=== PATIENT | male | born 1950 | race Caucasian/White ===

== ENCOUNTER 2023-09-28 17:39 | Inpatient (IN) | payer MEDICARE, SELFPAY ==
[2023-09-28] VITALS (12 sets, daily range): BP systolic 101–140; BP diastolic 50–67; PULSE 58–76; RESP 14–19; TEMP 36.4; O2SAT 94–100
--- NOTE | ~2023-09-28 | CT_ITS ---
Non-contrast Head CT History: Altered mental status Technique: Axial non-contrast imaging of the brain was performed. Dose reduction technique was used on this scan by utilizing automated exposure control and iterative reconstruction technique. The dose -length product (DLP) was 681.00 mGy-cm. Findings: There is no evidence of intracranial hemorrhage, mass lesion, or acute infarct. Brain par enchyma appears normal. The ventricles and subarachnoid spaces are normal in size. The calvarium ap pears normal. The visualized paranasal sinuses and mastoid air cells are clear. Impression: No significant abnormality seen. Reviewed, dictated and finalized at location . Impression: No significant abnormality seen.
--- NOTE | ~2023-09-28 | XR_ITS ---
EXAMINATION: XR chest 1V portable DATE: 09/28/2023 20:18 INDICATION: Weakness. TECHNIQUE: A single frontal view of the chest was obtained. COMPARISON: None. FINDINGS: There is mild atelectasis at left lung base. No pleural effusion or pneumothorax. The heart size is normal. There is an electronic implant overlying left chest. IMPRESSION: 1. Mild atelectasis at left lung base. Reviewed, dictated and finalized at location E.
--- NOTE | 2023-09-28 18:34 | ECG_ITS ---
SEE SCANNED COPY FOR CONFIRMED REPORT MTDD
--- NOTE | 2023-09-28 18:35 | ED.RECABL ---
HPI - Recheck/Abnormal Lab/Rx General Chief Complaint: Recheck/Abnormal Lab/Rx <Isma Watson APRN - Last Filed: 10/18/23 08:53> Stated Complaint: abnormal labs <Isma Watson APRN - Last Filed: 10/18/23 08:53> Time Seen by Provider: 09/28/23 19:04 <Isma Watson APRN - Last Filed: 10/18/23 08:53> Focused HPI: GENERAL: Well-appearing, well-nourished, and in no acute distress. HEAD: Normocephalic, atraumatic. CHEST: Clear to auscultation. No respiratory distress. HEART: Regular rate and rhythm. NEURO: Alert and oriented x3. Patient screened in triage and initial orders placed. Additional care and disposition to be based upon diagnostic testing and treatment. 73-year-old male presents to the emergency room via EMS from a nursing rehab for evaluation of hypercapnic patient had routine labs drawn today, potassium level 6.7. Patient denies any chest pain, shortness of breath palpitations, worsening muscle weakness, nausea vomiting, worsening lethargy and fatigue. <Isma Watson APRN - Last Filed: 10/18/23 08:53> History of Present Illness HPI narrative: Cross cover note from nursing rehab shows patient had acute mental status change with low blood pressures in the 80s systolic. Patient awake alert here. Recent admission to rehab due to trauma and subsequent stroke. No complaints at this time. <Terry Chavira MD - Last Filed: 09/28/23 23:51> Related Data Home Medications: Home Medications Medication Instructions Recorded Confirmed acetaminophen 500 mg capsule 975 mg PO TID 09/22/23 09/29/23 apixaban 2.5 mg tablet 2.5 mg PO BID 09/22/23 09/29/23 aspirin 325 mg tablet 325 mg PO DAILY 09/22/23 09/29/23 atorvastatin 80 mg tablet 80 mg PO HS 09/22/23 09/29/23 oxycodone 5 mg tablet 5 mg PO Q4H PRN Pain (Scale Score 09/22/23 09/29/23 7-10) polyethylene glycol 3350 17 17 g PO DAILY 04/12/24 04/19/24 gram/dose oral powder sennosides 8.6 mg tablet (senna) 8.6 mg PO BID 09/22/23 09/29/23 tamsulosin 0.4 mg capsule 0.4 mg PO QHS 09/22/23 09/29/23 mirtazapine 15 mg tablet 30 mg PO HS 09/29/23 09/29/23 ondansetron 4 mg disintegrating 4 mg PO Q8H PRN Nausea And Vomiting 09/29/23 09/29/23 tablet sertraline 50 mg tablet 25 mg PO DAILY 09/29/23 09/29/23 trazodone 50 mg tablet 25 mg PO HS 09/29/23 09/29/23 <Isma Watson APRN - Last Filed: 10/18/23 08:53> Allergies/Adverse Reactions: Allergies Allergy/AdvReac Type Severity Reaction Status Date / Time Iodinated Contrast Media Allergy Rash Verified 09/22/23 22:31 <Isma Watson APRN - Last Filed: 10/18/23 08:53> Review of Systems Review of Systems: All systems reviewed & are unremarkable except as noted in HPI and below <Terry Chavira MD - Last Filed: 09/28/23 23:51> Constitutional: Constitutional: Reports no additional constitutional complaints <Terry Chavira MD - Last Filed: 09/28/23 23:51> ENT: Reports system reviewed and no additional complaints, except as documented <Terry Chavira MD - Last Filed: 09/28/23 23:51> Cardiovascular: Cardiovascular: Reports no additional cardiovascular complaints <Terry Chavira MD - Last Filed: 09/28/23 23:51> Respiratory: Respiratory: Reports no additional respiratory complaints <Terry Chavira MD - Last Filed: 09/28/23 23:51> Gastrointestinal: Gastrointestinal: Reports no additional gastrointestinal complaints <Terry Chavira MD - Last Filed: 09/28/23 23:51> Neurologic: Reports system reviewed and no additional complaints, except as documented <Terry Chavira MD - Last Filed: 09/28/23 23:51> PMFSH Past Medical History Medical History: Medical History (Updated 10/05/23 @ 08:32 by Christen Rincker, DEVELOPMENTAL THERAPIST) Basal ganglia stroke Closed fracture of left proximal radius Dysphagia as late effect of stroke Gait abnormality Hyperlipidemia Hypertension Kidney stones <Isma Watson, DEVELOPMENTAL THERAPIST - Last Filed: 10/18/23 08:53> Surgical Hist
[2023-09-28 19:15] LABS: Alanine Aminotransferase 33 U/L (6-50); Albumin Level 4.2 g/dL (3.5-5.1); Alkaline Phosphatase 165 U/L (38-126); Anion Gap 7 mmol/L (4-12); Aspartate Amino Transferase 33 U/L (17-59); Bilirubin,Total 0.9 mg/dL (0.2-1.3); Blood Urea Nitrogen 46 mg/dL (9-20); Calcium 8.7 mg/dL (8.4-10.2); Carbon Dioxide 24 mmol/L (22-30); Chloride 102 mmol/L (98-107); Estimated CRCL calculation 18 ml/min; Estimated Glomerular Filt Rate 35; Glucose 117 mg/dL (65-110); Magnesium 2.8 mg/dL (1.6-2.3); Potassium 5.4 mmol/L (3.4-5.0); Sodium 133 mmol/L (137-145)
[2023-09-28] MEDS: LACTATED RINGERS 1,000 ML 250 ML IV CONT (19:25)
[2023-09-28 19:26] LABS: Troponin I < 0.012 ng/mL (0.000-0.034)
[2023-09-28] MEDS: SODIUM CHLORIDE 0.9% IV 1,000 ML 999 ML IV CONT (19:28)
[2023-09-28] MEDS: HYDROcodone/acetaminophen (*CRX) 5-325 MG TABLET 1 TAB PO (21:04)
[2023-09-28 21:06] LABS: Hematocrit 34.6 % (42.0-52.0); Hemoglobin 11.1 g/dL (14.0-18.0); Mean Corpuscular HGB Conc 32.1 g/dl (32-36); Mean Corpuscular Hemoglobin 28.7 pg (26-34); Mean Corpuscular Volume 89.4 fl (80-100); Mean Platelet Volume 9.8 fl (7.4-10.4); Platelet Count Result 402 k/mm3 (150-375); Red Blood Count 3.87 M/mm3 (4.6-6.20); Red Cell Distribution Width 13.3 % (11.5-14.5); White Blood Count 11.4 K/mm3 (4.5-10.0)
[2023-09-28 21:25] LABS: Band Neutrophils Percent 1 % (0-6); Eosinophils Absolute Manual 0.22 K/mm3 (0.02-0.50); Eosinophils Percent Manual 2 % (0-4); Lymphocytes Absolute Manual 1.48 K/mm3 (1.1-4.5); Monocytes Absolute Manual 0.79 K/mm3 (0.1-0.90); Monocytes Percent Manual 7 % (3-9); Myelocytes Percent 1 %; Neutrophils Absolute Manual 8.77 K/mm3 (1.3-6.7); Neutrophils Percent Manual 76 % (46-73); Total Cells Counted 100
[2023-09-28 21:26] LABS: Anisocytosis 1+; Hypochromasia 1+; Platelet Estimate Increased (Adequate); Poikilocytosis 1+; Schistocytes None Seen
[2023-09-28 21:37] LABS: Influenza A QL RT-PCR Negative (Negative); Influenza B QL RT-PCR Negative (Negative); RSV RNA, RT-PCR Negative (Negative); SARS-CoV-2 RNA PCR Negative (Negative)
[2023-09-28 22:48] LABS: Appearance Urine Clear (Clear); Bacteria Urine None Seen /hpf; Bilirubin Urine Negative (Negative); Blood Urine Negative (Negative); Color Urine Yellow (Yellow); Glucose Urine UA Negative (Negative); Ketones Urine Negative (Negative); Leukocyte Esterase Ur Negative LEU/UL (Negative); Need Manual Microscopic Reviewed; Nitrate Urine Negative (Negative); Protein Urine Trace mg/dL (Negative); RBC Urine 0-2 /hpf (0-2); Specific Grav Ur 1.016 (1.001-1.035); Squamous Epithelial Cell Urine None Seen /hpf (Few); WBC Urine 0-5 /hpf (0-3); pH Urine 5.5 (5.0-9.0)
[2023-09-28 22:49] LABS: Add Urine Microscopic? YES
--- NOTE | 2023-09-28 23:01 | PC.NURSE ---
this rn assumed care of patient. this rn took patient report from JAYSHREE Chakraborty.
[2023-09-28] MEDS: SODIUM CHLORIDE 0.9% IV 1,000 ML 125 ML IV CONT (23:58)
[2023-09-29] VITALS (10 sets, daily range): BP systolic 140–169; BP diastolic 58–79; PULSE 60–81; RESP 14–21; TEMP 36.1–36.7; O2SAT 94–100; BMI 30.2
--- NOTE | 2023-09-29 00:42 | ADMGEN ---
This patient, Michael Iqbal, was admitted to -. Patient/family oriented to hospital policies and general routines including ID bracelet, bed and alarms, visiting hours, pain management, procedures, bathroom and other care routines, personal items, smoking policy, room service/diet, and visiting hours. Information on how to activate the Rapid Response Team has been discussed. Patient/Family are encouraged to report perceived risks to care and to ask questions if they do not understand what they are told or what they should do.
[2023-09-29] MEDS: SODIUM ZIRCONIUM CYCLOSILICATE 10 GM POWD.PACK PO (05:40)
[2023-09-29 06:12] LABS: Basophils Absolute Auto 0.1 K/mm3 (0.0-0.1); Basophils Percent Auto 0.5 % (0.2-1.2); Eosinophils Absolute Auto 0.5 K/mm3 (0-0.3); Eosinophils Percent Auto 4.4 % (0-4.4); Hematocrit 35.4 % (42.0-52.0); Hemoglobin 11.1 g/dL (14.0-18.0); Immature Granulocyte Absolute 0.64 K/mm3 (0.00-0.031); Immature Granulocyte Percent A 5.5 % (0-0.5); Lymphocytes Percent Auto 8.6 % (18.3-44.2); Mean Corpuscular HGB Conc 31.4 g/dl (32-36); Mean Corpuscular Hemoglobin 28.6 pg (26-34); Mean Corpuscular Volume 91.2 fl (80-100); Mean Platelet Volume 10.2 fl (7.4-10.4); Monocytes Percent Auto 8.1 % (2.6-8.5); Neutrophils Absolute Auto 8.5 K/mm3 (1.3-6.7); Neutrophils Percent Auto 72.9 % (45.5-73.1); Platelet Count Result 405 k/mm3 (150-375); Red Blood Count 3.88 M/mm3 (4.6-6.20); Red Cell Distribution Width 13.3 % (11.5-14.5); White Blood Count 11.7 K/mm3 (4.5-10.0)
[2023-09-29 06:17] LABS: Ammonia < 9 umol/L (9-30)
[2023-09-29 06:36] LABS: Anion Gap 8 mmol/L (4-12); Blood Urea Nitrogen 44 mg/dL (9-20); Calcium 8.7 mg/dL (8.4-10.2); Carbon Dioxide 21 mmol/L (22-30); Chloride 107 mmol/L (98-107); Estimated CRCL calculation 42 ml/min; Estimated Glomerular Filt Rate 46; Glucose 93 mg/dL (65-110); Magnesium 2.9 mg/dL (1.6-2.3); Potassium 4.5 mmol/L (3.4-5.0); Sodium 136 mmol/L (137-145)
[2023-09-29 06:50] LABS: Procalcitonin 0.1 ng/mL
--- NOTE | 2023-09-29 07:09 | PM.IMHP ---
H&P: HPI History of Present Illness Date/Time: 09/29/23 07:09 Chief Complaint: low blood pressure Narrative: This is a 73 year old male with a PMH of HTN, HLD, and depression who recently suffered a ground level fall on 09/17/23 resulting in left hip fracture and left distal radius fracture. He reports he was walking in a parking lot and started to feel like he was passing out. He was [facility]. He underwent left hip shantell arthroplasty on 09/17. His left distal radius fracture was minimally displaced and therefore a volar resting splint was placed. During his hospitalization he developed slurred speech on 09/18 as well as left sided weakness and facial droop with NIH of 10. Neurology was consulted but he was not a candidate for acute interventions. MRI confirmed R basal ganglion acute v subacute infarct. Stroke is suspected to be related to small vessel disease and he was started on aspirin and plavix. He discharged from [place] to [facility] on 09/22/23 for acute inpatient rehab. On 09/27 at [facility] the patient experienced a low blood pressure with reported systolic in the 80's. Stat labs were drawn and he was found to have hyperkalemia and MAYTE. He was recently started on lisinopril and hydrochlorothiazide during his hospitalization at [place]. His lisinopril was decreased yesterday due to concerns for low blood pressure and he received a 1 L NS bolus. He was sent to [facility] ED for further evaluation. In the ED labs were significant for white count of 15.3, hemoglobin 12.1, platelets 524, Na 135, K+ 6.7, BUN 44, and Cr 1.90. Respiratory panel was negative as well as U/A. A head CT was preformed and showed no significant abnormality. Chest XR from 09/27 shows mild left lung base atelectasis. EKG shows NSR with a rate of 68 bpm. On exam he is resting in bed in no acute distress. His friend, Abena is at the bedside. She states she came to see him because he had called her seven times since 0700 this morning. The patient is able to answer my questions appropriately but he does have some impulsivity. He denies pain at this time. He denies dizziness, headache, shortness of breath, chest pain, nausea, vomiting or abdominal pain. He reports his last bowel movement was yesterday denying constipation or diarrhea. He voids per urinal without difficulty. He had a Marsh catheter at one point at [facility] but has been voiding well since removal. He does report left sided weakness since the stroke as well as dysphagia and cough with drinking. 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 His left lower extremity is able to move against gravity with some drift. He reports that he has not had the best intake of food or fluids due to lack of appetite. Review of Systems Review of Systems: All systems reviewed & are unremarkable except as noted in HPI and below [facility] Past Medical History Medical History (Updated 09/29/23 @ 10:29 by Ely Ny APRN) Basal ganglia stroke Closed fracture of left proximal radius Dysphagia as late effect of stroke Gait abnormality Hyperlipidemia Hypertension Kidney stones Surgical History Surgical History (Updated 09/29/23 @ 10:29 by Ely Ny APRN) H/O lithotripsy History of left hip hemiarthroplasty Family History Family History Sibling Diabetes mellitus Acute myocardial infarction Rheumatic aortic valve disease Father CHF (congestive heart failure) Social History Social History (Updated 09/29/23 @ 10:31 by Ely Ny APRN) Social History: retired from being a industrial truck operator, , and has a step-daughter Bri Kaye who lives in [facility]. Smoking status: Never smoker Alcohol intake: never Drinks per week: 1 Substance use: never Do You Feel Safe in your Home?: Yes Lack of Transportation: No Lack of Food: Never True Current Housing: I Have Housing Concerned About Future Housing: No Difficu
[2023-09-29 07:30] LABS: Hypochromasia 1+; Platelet Estimate Adequate (Adequate); Schistocytes None Seen
[2023-09-29] MEDS: APIXABAN 2.5 MG TABLET PO ×2 (09:03→16:53)
[2023-09-29] MEDS: ASPIRIN 325 MG TABLET PO (09:03)
[2023-09-29] MEDS: polyethylene glycoL 3350 17 GM POWD.PACK PO (09:03)
[2023-09-29] MEDS: SERTRALINE HCL 25 MG TABLET PO (09:03)
[2023-09-29] MEDS: SENNOSIDES 8.6 MG TABLET PO ×2 (09:03→16:53)
[2023-09-29] MEDS: HYDROcodone/acetaminophen (*CRX) 5-325 MG TABLET 1 TAB PO ×3 (09:22→20:57)
--- NOTE | 2023-09-29 15:50 | PCSTNOTE ---
Please refer to the Bedside Swallow Evaluation in the EMR. Please note, silent aspiration cannot be ruled out at bedside.
--- NOTE | 2023-09-29 16:01 | PCSTNOTE ---
Please refer to the Bedside Swallow Evaluation in the EMR. Please note, silent aspiration cannot be ruled out at bedside.
[2023-09-29] MEDS: SODIUM CHLORIDE 0.9% IV 1,000 ML 75 ML IV CONT (20:11)
[2023-09-29] MEDS: TAMSULOSIN HCL 0.4 MG CAPSULE PO (20:12)
[2023-09-29] MEDS: MIRTAZAPINE 15 MG TABLET 30 MG PO (20:12)
[2023-09-29] MEDS: ATORVASTATIN 40 MG TABLET 80 MG PO (20:12)
[2023-09-29] MEDS: traZODone HCL 25 MG TABLET PO (20:12)
[2023-09-30] VITALS (9 sets, daily range): BP systolic 140–161; BP diastolic 64–75; PULSE 65–77; RESP 18; TEMP 36.1–36.9; O2SAT 96–98
[2023-09-30 05:02] LABS: Hematocrit 32.9 % (42.0-52.0); Hemoglobin 10.3 g/dL (14.0-18.0); Mean Corpuscular HGB Conc 31.3 g/dl (32-36); Mean Corpuscular Hemoglobin 28.1 pg (26-34); Mean Corpuscular Volume 89.6 fl (80-100); Platelet Count Result 421 k/mm3 (150-375); Red Blood Count 3.67 M/mm3 (4.6-6.20); Red Cell Distribution Width 13.1 % (11.5-14.5); White Blood Count 11.5 K/mm3 (4.5-10.0)
[2023-09-30 05:13] LABS: Alanine Aminotransferase 23 U/L (6-50); Albumin Level 3.8 g/dL (3.5-5.1); Alkaline Phosphatase 139 U/L (38-126); Anion Gap 8 mmol/L (4-12); Aspartate Amino Transferase 25 U/L (17-59); Bilirubin,Total 0.8 mg/dL (0.2-1.3); Blood Urea Nitrogen 24 mg/dL (9-20); Calcium 9.1 mg/dL (8.4-10.2); Carbon Dioxide 22 mmol/L (22-30); Chloride 108 mmol/L (98-107); Estimated CRCL calculation 69 ml/min; Estimated Glomerular Filt Rate > 60; Glucose 106 mg/dL (65-110); Magnesium 2.5 mg/dL (1.6-2.3); Sodium 138 mmol/L (137-145)
--- NOTE | 2023-09-30 08:36 | P.PNIM_ITS ---
Progress Note: A&P Assessment and Plan (1) MAYTE (acute kidney injury): Code(s): N17.9 - Acute kidney failure, unspecified Status: Acute Assessment and Plan: Likely pre-renal 2/2 to dehydration from hydrochlorothiazide diuretic and low bp * Blood pressures were low at [facility], reported systolic in the 80's * BP has recovered today now at 140/62 * check orthostatic vital signs * Continue IVF but rate decreased to 75 ml per hour * Strict I&O * Holding lisinopril and Hctz at this time * U/A normal * Cr this morning is downtrending to 1.5 09/29: * Cr has returned to normal at 0.9 * Stop IVF * BP 140-150/60-70, HR 70's * Do not plan on restarting Hctz as he likely is not taking in enough PO intake given stroke to warrant diuresis for bp control. * Switch to amlodipine 5 mg daily given persistent elevated K+ (2) Acute hyperkalemia: Code(s): E87.5 - Hyperkalemia Status: Acute Assessment and Plan: K+ 6.7 on admission * On telemetry, NSR rate 68 * Received Lokelma 10 mg once * K this morning is 4.5 09/29: * K+ 5.0 * stopping lisinopril (3) Closed fracture of left proximal radius: Code(s): S52.102A - Unspecified fracture of upper end of left radius, initial encounter for closed fracture Status: Acute Assessment and Plan: NWB to left wrist with volar splint (4) History of left hip hemiarthroplasty: Code(s): Z96.642 - Presence of left artificial hip joint Status: Acute Assessment and Plan: PT/OT consulted for continued therapy Eliquis 2.5 mg PO BID for DVT prophylaxis until 10/14 (5) Hypertension: Code(s): I10 - Essential (primary) hypertension Status: Acute Assessment and Plan: Was recently started on lisinopril and hctz at [place] * agents are currently being held due to presentation with low bp, MAYTE, and hyperkalemia * monitor BP daily 09/29: * blood pressures are running SBP 140-160's * Will start amlodipine 5 mg (6) Basal ganglia stroke: Code(s): I63.81 - Other cerebral infarction due to occlusion or stenosis of small artery Status: Acute Assessment and Plan: On statin, ASA 325 mg Left sided weakness and droop with dysphagia started on sertraline and mirtazapine for depression PT/OT/ST consulted (7) 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 Received a call from care coordination that the patient had made statements at [facility] that if he had to go to a SNF he would kill himself. [place] screen completed upon admission here and he was determined to be a low risk. I will speak to patient about these statments today. Plan Blood pressure monitoring IVF for MAYTE [facility] will not receive the patient back. Will need SNF placement. Subjective Date/time seen: 09/30/23 08:36 Interval history: 09/29-Doing well today. He was moved to a room closer to the nurses station because of his impulsivity. I discussed with him that he will need to go to a SNF at discharge because he cannot safely go home yet but according to care coordination he cannot go back to [facility]. I also discussed with him statements that were made by him at [facility] concerning wanting to end his life. He states he does not remember that. He says he does not currently have any thoughts
--- NOTE | 2023-09-30 08:36 | PM.IMPN ---
Progress Note: A&P Assessment and Plan (1) MAYTE (acute kidney injury): Code(s): N17.9 - Acute kidney failure, unspecified Status: Acute Assessment and Plan: Likely pre-renal 2/2 to dehydration from hydrochlorothiazide diuretic and low bp Blood pressures were low at [facility], reported systolic in the 80's BP has recovered today now at 140/62 check orthostatic vital signs Continue IVF but rate decreased to 75 ml per hour Strict I&O Holding lisinopril and Hctz at this time U/A normal Cr this morning is downtrending to 1.5 09/29: Cr has returned to normal at 0.9 Stop IVF BP 140-150/60-70, HR 70's Do not plan on restarting Hctz as he likely is not taking in enough PO intake given stroke to warrant diuresis for bp control. Switch to amlodipine 5 mg daily given persistent elevated K+ (2) Acute hyperkalemia: Code(s): E87.5 - Hyperkalemia Status: Acute Assessment and Plan: K+ 6.7 on admission On telemetry, NSR rate 68 Received Lokelma 10 mg once K this morning is 4.5 09/29: K+ 5.0 stopping lisinopril (3) Closed fracture of left proximal radius: Code(s): S52.102A - Unspecified fracture of upper end of left radius, initial encounter for closed fracture Status: Acute Assessment and Plan: NWB to left wrist with volar splint (4) History of left hip hemiarthroplasty: Code(s): Z96.642 - Presence of left artificial hip joint Status: Acute Assessment and Plan: PT/OT consulted for continued therapy Eliquis 2.5 mg PO BID for DVT prophylaxis until 10/14 (5) Hypertension: Code(s): I10 - Essential (primary) hypertension Status: Acute Assessment and Plan: Was recently started on lisinopril and hctz at [place] agents are currently being held due to presentation with low bp, MAYTE, and hyperkalemia monitor BP daily 09/29: blood pressures are running SBP 140-160's Will start amlodipine 5 mg (6) Basal ganglia stroke: Code(s): I63.81 - Other cerebral infarction due to occlusion or stenosis of small artery Status: Acute Assessment and Plan: On statin, ASA 325 mg Left sided weakness and droop with dysphagia started on sertraline and mirtazapine for depression PT/OT/ST consulted (7) 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 Received a call from care coordination that the patient had made statements at [facility] that if he had to go to a SNF he would kill himself. [place] screen completed upon admission here and he was determined to be a low risk. I will speak to patient about these statments today. Plan Blood pressure monitoring IVF for MAYTE [facility] will not receive the patient back. Will need SNF placement. Subjective Date/time seen: 09/30/23 08:36 Interval history: 09/29-Doing well today. He was moved to a room closer to the nurses station because of his impulsivity. I discussed with him that he will need to go to a SNF at discharge because he cannot safely go home yet but according to care coordination he cannot go back to [facility]. I also discussed with him statements that were made by him at [facility] concerning wanting to end his life. He states he does not remember that. He says he does not currently have any thoughts of wanting to end his life or harm himself. He denies homicidal ideation. He states that he sometimes gets down and sad since his stroke. He becomes tearful when talking about his cat. Review of Systems Review of Systems: All systems reviewed & are unremarkable except as noted in HPI and below Exam Narrative: General: well appearing, appears stated age, impulsive HEENT: normocephalic, atraumatic. Mucous
[2023-09-30] MEDS: SENNOSIDES 8.6 MG TABLET PO ×2 (09:21→17:52)
[2023-09-30] MEDS: APIXABAN 2.5 MG TABLET PO ×2 (09:21→17:52)
[2023-09-30] MEDS: SERTRALINE HCL 25 MG TABLET PO (09:21)
[2023-09-30] MEDS: polyethylene glycoL 3350 17 GM POWD.PACK PO (09:21)
[2023-09-30] MEDS: ASPIRIN 325 MG TABLET PO (09:21)
[2023-09-30] MEDS: MORPHINE SULFATE (*CRX) 2 MG/ML INJ IV PUSH (09:23)
[2023-09-30] MEDS: HYDROcodone/acetaminophen (*CRX) 5-325 MG TABLET 1 TAB PO (17:51)
[2023-09-30] MEDS: traZODone HCL 25 MG TABLET PO (20:10)
[2023-09-30] MEDS: ATORVASTATIN 40 MG TABLET 80 MG PO (20:10)
[2023-09-30] MEDS: TAMSULOSIN HCL 0.4 MG CAPSULE PO (20:11)
[2023-09-30] MEDS: MIRTAZAPINE 15 MG TABLET 30 MG PO (20:11)
[2023-10-01] VITALS (9 sets, daily range): BP systolic 125–149; BP diastolic 61–66; PULSE 62–74; RESP 15–18; TEMP 36.4–36.6; O2SAT 98–99
[2023-10-01] MEDS: HYDROcodone/acetaminophen (*CRX) 5-325 MG TABLET 1 TAB PO ×3 (01:58→17:15)
[2023-10-01] MEDS: polyethylene glycoL 3350 17 GM POWD.PACK PO (08:21)
[2023-10-01] MEDS: SERTRALINE HCL 25 MG TABLET PO (08:21)
[2023-10-01] MEDS: SENNOSIDES 8.6 MG TABLET PO ×2 (08:21→17:15)
[2023-10-01] MEDS: APIXABAN 2.5 MG TABLET PO ×2 (08:21→17:15)
[2023-10-01] MEDS: ASPIRIN 325 MG TABLET PO (08:21)
--- NOTE | 2023-10-01 09:25 | P.PNIM_ITS ---
Progress Note: A&P Assessment and Plan (1) MAYTE (acute kidney injury): Code(s): N17.9 - Acute kidney failure, unspecified Status: Acute Assessment and Plan: Likely pre-renal 2/2 to dehydration from hydrochlorothiazide diuretic and low bp * Blood pressures were low at [facility], reported systolic in the 80's * BP has recovered today now at 140/62 * check orthostatic vital signs * Continue IVF but rate decreased to 75 ml per hour * Strict I&O * Holding lisinopril and Hctz at this time * U/A normal * Cr this morning is downtrending to 1.5 09/29: * Cr has returned to normal at 0.9 * Stop IVF * BP 140-150/60-70, HR 70's * Do not plan on restarting Hctz as he likely is not taking in enough PO intake given stroke to warrant diuresis for bp control. * Switch to amlodipine 5 mg daily given persistent elevated K+ 09/30: * lab holiday (2) Acute hyperkalemia: Code(s): E87.5 - Hyperkalemia Status: Acute Assessment and Plan: K+ 6.7 on admission * On telemetry, NSR rate 68 * Received Lokelma 10 mg once * K this morning is 4.5 09/29: * K+ 5.0 * stopping lisinopril 09/30: * lab holiday (3) Closed fracture of left proximal radius: Code(s): S52.102A - Unspecified fracture of upper end of left radius, initial encounter for closed fracture Status: Acute Assessment and Plan: NWB to left wrist with volar splint (4) History of left hip hemiarthroplasty: Code(s): Z96.642 - Presence of left artificial hip joint Status: Acute Assessment and Plan: PT/OT consulted for continued therapy Eliquis 2.5 mg PO BID for DVT prophylaxis until 10/14 (5) Hypertension: Code(s): I10 - Essential (primary) hypertension Status: Acute Assessment and Plan: Was recently started on lisinopril and hctz at [place] * agents are currently being held due to presentation with low bp, MAYTE, and hyperkalemia * monitor BP daily 09/29: * blood pressures are running SBP 140-160's * Will start amlodipine 5 mg 09/30: * 149/66 mmhg (6) Basal ganglia stroke: Code(s): I63.81 - Other cerebral infarction due to occlusion or stenosis of small artery Status: Acute Assessment and Plan: On statin, ASA 325 mg Left sided weakness and droop with dysphagia started on sertraline and mirtazapine for depression PT/OT/ST consulted (7) 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 Received a call from care coordination that the patient had made statements at [facility] that if he had to go to a SNF he would kill himself. [place] screen completed upon admission here and he was determined to be a low risk. I will speak to patient about these statements today. 09/30: * Not suicidal or homicidal * Depressed Plan Blood pressure monitoring [facility] will not receive the patient back. Will need SNF placement. Subjective Date/time seen: 10/01/23 09:25 Interval history: 09/29-Doing well today. He was moved to a room closer to the nurses station because of his impulsivity. I discussed with him that he will need to go to a SNF at discharge because he cannot safely go home yet but according to care coordination he cannot go back to [facility]. I also discussed wit
--- NOTE | 2023-10-01 09:25 | PM.IMPN ---
Progress Note: A&P Assessment and Plan (1) MAYTE (acute kidney injury): Code(s): N17.9 - Acute kidney failure, unspecified Status: Acute Assessment and Plan: Likely pre-renal 2/2 to dehydration from hydrochlorothiazide diuretic and low bp Blood pressures were low at [facility], reported systolic in the 80's BP has recovered today now at 140/62 check orthostatic vital signs Continue IVF but rate decreased to 75 ml per hour Strict I&O Holding lisinopril and Hctz at this time U/A normal Cr this morning is downtrending to 1.5 09/29: Cr has returned to normal at 0.9 Stop IVF BP 140-150/60-70, HR 70's Do not plan on restarting Hctz as he likely is not taking in enough PO intake given stroke to warrant diuresis for bp control. Switch to amlodipine 5 mg daily given persistent elevated K+ 09/30: lab holiday (2) Acute hyperkalemia: Code(s): E87.5 - Hyperkalemia Status: Acute Assessment and Plan: K+ 6.7 on admission On telemetry, NSR rate 68 Received Lokelma 10 mg once K this morning is 4.5 09/29: K+ 5.0 stopping lisinopril 09/30: lab holiday (3) Closed fracture of left proximal radius: Code(s): S52.102A - Unspecified fracture of upper end of left radius, initial encounter for closed fracture Status: Acute Assessment and Plan: NWB to left wrist with volar splint (4) History of left hip hemiarthroplasty: Code(s): Z96.642 - Presence of left artificial hip joint Status: Acute Assessment and Plan: PT/OT consulted for continued therapy Eliquis 2.5 mg PO BID for DVT prophylaxis until 10/14 (5) Hypertension: Code(s): I10 - Essential (primary) hypertension Status: Acute Assessment and Plan: Was recently started on lisinopril and hctz at [place] agents are currently being held due to presentation with low bp, MAYTE, and hyperkalemia monitor BP daily 09/29: blood pressures are running SBP 140-160's Will start amlodipine 5 mg 09/30: 149/66 mmhg (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 Received a call from care coordination that the patient had made statements at [facility] that if he had to go to a SNF he would kill himself. [place] screen completed upon admission here and he was determined to be a low risk. I will speak to patient about these statements today. 09/30: Not suicidal or homicidal Depressed Plan Blood pressure monitoring [facility] will not receive the patient back. Will need SNF placement. Subjective Date/time seen: 10/01/23 09:25 Interval history: 09/29-Doing well today. He was moved to a room closer to the nurses station because of his impulsivity. I discussed with him that he will need to go to a SNF at discharge because he cannot safely go home yet but according to care coordination he cannot go back to [facility]. I also discussed with him statements that were made by him at [facility] concerning wanting to end his life. He states he does not remember that. He says he does not currently have any thoughts of wanting to end his life or harm himself. He denies homicidal ideation. He states that he sometimes gets down and sad since his stroke. He becomes tearful when talking about his cat. 09/30: Michael is doing well a day. I helped him get to the chair today. Therapy come and work with him at the end of o
--- NOTE | 2023-10-01 11:07 | PCPTNOTE ---
11:07 first attempt pt was too tired, informed pt therapist will be back after lunch pt agreeable.
[2023-10-01] MEDS: traZODone HCL 25 MG TABLET PO (20:32)
[2023-10-01] MEDS: ATORVASTATIN 40 MG TABLET 80 MG PO (20:32)
[2023-10-01] MEDS: TAMSULOSIN HCL 0.4 MG CAPSULE PO (20:33)
[2023-10-01] MEDS: MIRTAZAPINE 15 MG TABLET 30 MG PO (20:33)
[2023-10-02] VITALS (9 sets, daily range): BP systolic 122–154; BP diastolic 61–80; PULSE 65–75; RESP 16–18; TEMP 36.2–36.4; O2SAT 98–100
[2023-10-02] MEDS: HYDROcodone/acetaminophen (*CRX) 5-325 MG TABLET 1 TAB PO ×3 (02:55→16:55)
[2023-10-02 06:04] LABS: Basophils Absolute Auto 0.1 K/mm3 (0.0-0.1); Basophils Percent Auto 0.6 % (0.2-1.2); Eosinophils Absolute Auto 0.6 K/mm3 (0-0.3); Eosinophils Percent Auto 5.2 % (0-4.4); Hematocrit 34.8 % (42.0-52.0); Immature Granulocyte Absolute 0.39 K/mm3 (0.00-0.031); Immature Granulocyte Percent A 3.1 % (0-0.5); Lymphocytes Absolute Auto 1.33 K/mm3 (0.9-3.2); Lymphocytes Percent Auto 10.7 % (18.3-44.2); Mean Corpuscular HGB Conc 31.6 g/dl (32-36); Mean Corpuscular Hemoglobin 28.4 pg (26-34); Mean Corpuscular Volume 89.9 fl (80-100); Mean Platelet Volume 9.9 fl (7.4-10.4); Monocytes Absolute Auto 0.9 K/mm3 (0.1-0.6); Monocytes Percent Auto 6.9 % (2.6-8.5); Neutrophils Absolute Auto 9.1 K/mm3 (1.3-6.7); Neutrophils Percent Auto 73.5 % (45.5-73.1); Platelet Count Result 477 k/mm3 (150-375); Red Blood Count 3.87 M/mm3 (4.6-6.20); Red Cell Distribution Width 13.1 % (11.5-14.5); White Blood Count 12.4 K/mm3 (4.5-10.0)
[2023-10-02 06:28] LABS: Alanine Aminotransferase 20 U/L (6-50); Alkaline Phosphatase 144 U/L (38-126); Anion Gap 6 mmol/L (4-12); Aspartate Amino Transferase 24 U/L (17-59); Bilirubin,Total 0.7 mg/dL (0.2-1.3); Blood Urea Nitrogen 19 mg/dL (9-20); Calcium 9.4 mg/dL (8.4-10.2); Carbon Dioxide 26 mmol/L (22-30); Chloride 105 mmol/L (98-107); Estimated CRCL calculation 62 ml/min; Estimated Glomerular Filt Rate > 60; Glucose 116 mg/dL (65-110); Potassium 4.7 mmol/L (3.4-5.0); Sodium 137 mmol/L (137-145)
[2023-10-02] MEDS: ASPIRIN 325 MG TABLET PO (08:08)
[2023-10-02] MEDS: SERTRALINE HCL 25 MG TABLET PO (08:08)
[2023-10-02] MEDS: APIXABAN 2.5 MG TABLET PO ×2 (08:08→16:55)
[2023-10-02] MEDS: SENNOSIDES 8.6 MG TABLET PO ×2 (08:08→16:55)
[2023-10-02] MEDS: polyethylene glycoL 3350 17 GM POWD.PACK PO (08:08)
[2023-10-02] MEDS: amLODIPine BESYLATE 5 MG TABLET PO (13:34)
--- NOTE | 2023-10-02 15:32 | P.PNIM_ITS ---
Progress Note: A&P Assessment and Plan (1) MAYTE (acute kidney injury): Code(s): N17.9 - Acute kidney failure, unspecified Status: Acute Assessment and Plan: Likely pre-renal 2/2 to dehydration from hydrochlorothiazide diuretic and low bp * Blood pressures were low at [facility], reported systolic in the 80's * BP has recovered today now at 140/62 * check orthostatic vital signs * Continue IVF but rate decreased to 75 ml per hour * Strict I&O * Holding lisinopril and Hctz at this time * U/A normal * Cr this morning is downtrending to 1.5 09/29: * Cr has returned to normal at 0.9 * Stop IVF * BP 140-150/60-70, HR 70's * Do not plan on restarting Hctz as he likely is not taking in enough PO intake given stroke to warrant diuresis for bp control. * Switch to amlodipine 5 mg daily given persistent elevated K+ 09/30: * lab holiday 10/01: * Resolved. * Creatinine 1 (2) Acute hyperkalemia: Code(s): E87.5 - Hyperkalemia Status: Acute Assessment and Plan: K+ 6.7 on admission * On telemetry, NSR rate 68 * Received Lokelma 10 mg once * K this morning is 4.5 09/29: * K+ 5.0 * stopping lisinopril 09/30: * lab holiday 10/01: * Resolved * Potassium 4.7 (3) Closed fracture of left proximal radius: Code(s): S52.102A - Unspecified fracture of upper end of left radius, initial encounter for closed fracture Status: Acute Assessment and Plan: NWB to left wrist with volar splint * PT OT consult * Recommending snf (4) History of left hip hemiarthroplasty: Code(s): Z96.642 - Presence of left artificial hip joint Status: Acute Assessment and Plan: PT/OT consulted for continued therapy Eliquis 2.5 mg PO BID for DVT prophylaxis until 10/14 * Weight-bearing as tolerated with walker * Needs SNF placement (5) Hypertension: Code(s): I10 - Essential (primary) hypertension Status: Acute Assessment and Plan: Was recently started on lisinopril and hctz at [place] * agents are currently being held due to presentation with low bp, MAYTE, and hyperkalemia * monitor BP daily 09/29: * blood pressures are running SBP 140-160's * Will start amlodipine 5 mg 09/30: * 149/66 mmhg 10/01: * Started amlodipine 5 mg. 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 Veronica vickey a call from care coordination that the patient had made statements at [facility] that if he had to go to a SNF he would kill himself. [place] screen completed upon admission here and he was determined to be a low risk. I will speak to patient about these statements today. 09/30: * Not suicidal or homicidal * Depressed Plan Blood pressure monitoring Will need SNF placement Subjective Date/time seen: 10/02/23 15:32 Interval history: 09/29-Doing well today. He was moved to a room closer to the [facility]
--- NOTE | 2023-10-02 15:32 | PM.IMPN ---
Progress Note: A&P Assessment and Plan (1) MAYTE (acute kidney injury): Code(s): N17.9 - Acute kidney failure, unspecified Status: Acute Assessment and Plan: Likely pre-renal 2/2 to dehydration from hydrochlorothiazide diuretic and low bp Blood pressures were low at [facility], reported systolic in the 80's BP has recovered today now at 140/62 check orthostatic vital signs Continue IVF but rate decreased to 75 ml per hour Strict I&O Holding lisinopril and Hctz at this time U/A normal Cr this morning is downtrending to 1.5 09/29: Cr has returned to normal at 0.9 Stop IVF BP 140-150/60-70, HR 70's Do not plan on restarting Hctz as he likely is not taking in enough PO intake given stroke to warrant diuresis for bp control. Switch to amlodipine 5 mg daily given persistent elevated K+ 09/30: lab holiday 10/01: Resolved. Creatinine 1 (2) Acute hyperkalemia: Code(s): E87.5 - Hyperkalemia Status: Acute Assessment and Plan: K+ 6.7 on admission On telemetry, NSR rate 68 Received Lokelma 10 mg once K this morning is 4.5 09/29: K+ 5.0 stopping lisinopril 09/30: lab holiday 10/01: Resolved Potassium 4.7 (3) Closed fracture of left proximal radius: Code(s): S52.102A - Unspecified fracture of upper end of left radius, initial encounter for closed fracture Status: Acute Assessment and Plan: NWB to left wrist with volar splint PT OT consult Recommending snf (4) History of left hip hemiarthroplasty: Code(s): Z96.642 - Presence of left artificial hip joint Status: Acute Assessment and Plan: PT/OT consulted for continued therapy Eliquis 2.5 mg PO BID for DVT prophylaxis until 5/5 Weight-bearing as tolerated with walker Needs SNF placement (5) Hypertension: Code(s): I10 - Essential (primary) hypertension Status: Acute Assessment and Plan: Was recently started on lisinopril and hctz at [place] agents are currently being held due to presentation with low bp, MAYTE, and hyperkalemia monitor BP daily 09/29: blood pressures are running SBP 140-160's Will start amlodipine 5 mg 4/21: 149/66 mmhg 10/01: Started amlodipine 5 mg. 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 Received a call from care coordination that the patient had made statements at [facility] that if he had to go to a SNF he would kill himself. [place] screen completed upon admission here and he was determined to be a low risk. I will speak to patient about these statements today. 09/30: Not suicidal or homicidal Depressed Plan Blood pressure monitoring Will need SNF placement Subjective Date/time seen: 10/02/23 15:32 Interval history: 09/29-Doing well today. He was moved to a room closer to the nurses station because of his impulsivity. I discussed with him that he will need to go to a SNF at discharge because he cannot safely go home yet but according to care coordination he cannot go back to [facility]. I also discussed with him statements that were made by him at [facility] concerning wanting to end his life. He states he does not remember that. He says he does not currently have any thoughts of wanting to end his life or harm himself. He denies homicidal ideation. He states that he sometimes gets down and sad since his stroke. He
[2023-10-02] MEDS: TAMSULOSIN HCL 0.4 MG CAPSULE PO (20:25)
[2023-10-02] MEDS: ACETAMINOPHEN 325 MG TABLET 650 MG PO (20:25)
[2023-10-02] MEDS: MIRTAZAPINE 15 MG TABLET 30 MG PO (20:25)
[2023-10-02] MEDS: traZODone HCL 25 MG TABLET PO (20:25)
[2023-10-02] MEDS: ATORVASTATIN 40 MG TABLET 80 MG PO (20:25)
[2023-10-03] VITALS (9 sets, daily range): BP systolic 130–152; BP diastolic 67–82; PULSE 63–79; RESP 16–18; TEMP 36.6–36.7; O2SAT 96–100
[2023-10-03] MEDS: APIXABAN 2.5 MG TABLET PO ×2 (08:03→17:14)
[2023-10-03] MEDS: amLODIPine BESYLATE 5 MG TABLET PO (08:03)
[2023-10-03] MEDS: SENNOSIDES 8.6 MG TABLET PO ×2 (08:03→17:14)
[2023-10-03] MEDS: HYDROcodone/acetaminophen (*CRX) 5-325 MG TABLET 1 TAB PO ×2 (08:03→22:49)
[2023-10-03] MEDS: polyethylene glycoL 3350 17 GM POWD.PACK PO (08:04)
[2023-10-03] MEDS: SERTRALINE HCL 25 MG TABLET PO (08:04)
[2023-10-03] MEDS: ASPIRIN 325 MG TABLET PO (08:04)
--- NOTE | 2023-10-03 09:14 | P.PNIM_ITS ---
Progress Note: A&P Assessment and Plan (1) MAYTE (acute kidney injury): Code(s): N17.9 - Acute kidney failure, unspecified Status: Acute Assessment and Plan: Likely pre-renal 2/2 to dehydration from hydrochlorothiazide diuretic and low bp * Blood pressures were low at [facility], reported systolic in the 80's * BP has recovered today now at 140/62 * check orthostatic vital signs * Continue IVF but rate decreased to 75 ml per hour * Strict I&O * Holding lisinopril and Hctz at this time * U/A normal * Cr this morning is downtrending to 1.5 09/29: * Cr has returned to normal at 0.9 * Stop IVF * BP 140-150/60-70, HR 70's * Do not plan on restarting Hctz as he likely is not taking in enough PO intake given stroke to warrant diuresis for bp control. * Switch to amlodipine 5 mg daily given persistent elevated K+ 09/30: * lab holiday 10/01: * Resolved. * Creatinine 1 (2) Acute hyperkalemia: Code(s): E87.5 - Hyperkalemia Status: Acute Assessment and Plan: K+ 6.7 on admission * On telemetry, NSR rate 68 * Received Lokelma 10 mg once * K this morning is 4.5 09/29: * K+ 5.0 * stopping lisinopril 09/30: * lab holiday 10/01: * Resolved * Potassium 4.7 (3) Closed fracture of left proximal radius: Code(s): S52.102A - Unspecified fracture of upper end of left radius, initial encounter for closed fracture Status: Acute Assessment and Plan: NWB to left wrist with volar splint * PT OT consult * Recommending snf (4) History of left hip hemiarthroplasty: Code(s): Z96.642 - Presence of left artificial hip joint Status: Acute Assessment and Plan: PT/OT consulted for continued therapy Eliquis 2.5 mg PO BID for DVT prophylaxis until 10/14 * Weight-bearing as tolerated with walker * Needs SNF placement (5) Hypertension: Code(s): I10 - Essential (primary) hypertension Status: Acute Assessment and Plan: Was recently started on lisinopril and hctz at [place] * agents are currently being held due to presentation with low bp, MAYTE, and hyperkalemia * monitor BP daily 09/29: * blood pressures are running SBP 140-160's * Will start amlodipine 5 mg 09/30: * 149/66 mmhg 10/01: * Started amlodipine 5 mg. 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 Received a call from care coordination that the patient had made statements at [facility] that if he had to go to a SNF he would kill himself. [place] screen completed upon admission here and he was determined to be a low risk. I will speak to patient about these statements today. 09/30: * Not suicidal or homicidal * Depressed Plan Blood pressure monitoring Will need SNF placement Subjective Date/time seen: 10/03/23 09:14 Interval history: 09/29-Doing well jace
--- NOTE | 2023-10-03 09:14 | PM.IMPN ---
Progress Note: A&P Assessment and Plan (1) MAYTE (acute kidney injury): Code(s): N17.9 - Acute kidney failure, unspecified Status: Acute Assessment and Plan: Likely pre-renal 2/2 to dehydration from hydrochlorothiazide diuretic and low bp Blood pressures were low at [facility], reported systolic in the 80's BP has recovered today now at 140/62 check orthostatic vital signs Continue IVF but rate decreased to 75 ml per hour Strict I&O Holding lisinopril and Hctz at this time U/A normal Cr this morning is downtrending to 1.5 09/29: Cr has returned to normal at 0.9 Stop IVF BP 140-150/60-70, HR 70's Do not plan on restarting Hctz as he likely is not taking in enough PO intake given stroke to warrant diuresis for bp control. Switch to amlodipine 5 mg daily given persistent elevated K+ 09/30: lab holiday 10/01: Resolved. Creatinine 1 (2) Acute hyperkalemia: Code(s): E87.5 - Hyperkalemia Status: Acute Assessment and Plan: K+ 6.7 on admission On telemetry, NSR rate 68 Received Lokelma 10 mg once K this morning is 4.5 09/29: K+ 5.0 stopping lisinopril 09/30: lab holiday 10/01: Resolved Potassium 4.7 (3) Closed fracture of left proximal radius: Code(s): S52.102A - Unspecified fracture of upper end of left radius, initial encounter for closed fracture Status: Acute Assessment and Plan: NWB to left wrist with volar splint PT OT consult Recommending snf (4) History of left hip hemiarthroplasty: Code(s): Z96.642 - Presence of left artificial hip joint Status: Acute Assessment and Plan: PT/OT consulted for continued therapy Eliquis 2.5 mg PO BID for DVT prophylaxis until 5/5 Weight-bearing as tolerated with walker Needs SNF placement (5) Hypertension: Code(s): I10 - Essential (primary) hypertension Status: Acute Assessment and Plan: Was recently started on lisinopril and hctz at [place] agents are currently being held due to presentation with low bp, MAYTE, and hyperkalemia monitor BP daily 09/29: blood pressures are running SBP 140-160's Will start amlodipine 5 mg 4/21: 149/66 mmhg 10/01: Started amlodipine 5 mg. 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 Received a call from care coordination that the patient had made statements at [facility] that if he had to go to a SNF he would kill himself. [place] screen completed upon admission here and he was determined to be a low risk. I will speak to patient about these statements today. 09/30: Not suicidal or homicidal Depressed Plan Blood pressure monitoring Will need SNF placement Subjective Date/time seen: 10/03/23 09:14 Interval history: 09/29-Doing well today. He was moved to a room closer to the nurses station because of his impulsivity. I discussed with him that he will need to go to a SNF at discharge because he cannot safely go home yet but according to care coordination he cannot go back to [facility]. I also discussed with him statements that were made by him at [facility] concerning wanting to end his life. He states he does not remember that. He says he does not currently have any thoughts of wanting to end his life or harm himself. He denies homicidal ideation. He states that he sometimes gets shashi
[2023-10-03] MEDS: traZODone HCL 25 MG TABLET PO (20:18)
[2023-10-03] MEDS: TAMSULOSIN HCL 0.4 MG CAPSULE PO (20:18)
[2023-10-03] MEDS: ATORVASTATIN 40 MG TABLET 80 MG PO (20:18)
[2023-10-03] MEDS: MIRTAZAPINE 15 MG TABLET 30 MG PO (20:18)
[2023-10-04] MEDS: HYDROcodone/acetaminophen (*CRX) 5-325 MG TABLET 1 TAB PO ×2 (03:57→08:24)
[2023-10-04 06:00] VITALS: BP 157/93; PULSE 70; RESP 19; TEMP 36.3; O2SAT 98
[2023-10-04] MEDS: APIXABAN 2.5 MG TABLET PO (08:23)
[2023-10-04] MEDS: amLODIPine BESYLATE 5 MG TABLET PO (08:24)
[2023-10-04] MEDS: SENNOSIDES 8.6 MG TABLET PO (08:24)
[2023-10-04] MEDS: polyethylene glycoL 3350 17 GM POWD.PACK PO (08:24)
[2023-10-04] MEDS: ASPIRIN 325 MG TABLET PO (08:24)
[2023-10-04] MEDS: SERTRALINE HCL 25 MG TABLET PO (08:24)
--- NOTE | 2023-10-04 11:47 | PM.DS ---
DS: Admitting Diagnosis Discharge Date 10/04/23 Admitting Diagnosis low BP DS: Discharge Diagnosis Discharge Diagnosis (1) MAYTE (acute kidney injury): Code(s): N17.9 - Acute kidney failure, unspecified Status: Resolved Assessment and Plan: Likely pre-renal 2/2 to dehydration from hydrochlorothiazide diuretic and low bp Blood pressures were low at [facility], reported systolic in the 80's Do not plan on restarting Hctz as he likely is not taking in enough PO intake given stroke to warrant diuresis for bp control. Switch to amlodipine 5 mg daily given persistent elevated K+ (2) Acute hyperkalemia: Code(s): E87.5 - Hyperkalemia Status: Resolved (3) Closed fracture of left proximal radius: Code(s): S52.102A - Unspecified fracture of upper end of left radius, initial encounter for closed fracture Status: Acute Assessment and Plan: NWB to left wrist with volar splint PT OT - snf (4) History of left hip hemiarthroplasty: Code(s): Z96.642 - Presence of left artificial hip joint Status: Acute Assessment and Plan: Eliquis 2.5 mg PO BID for DVT prophylaxis until 5/5 Weight-bearing as tolerated with walker SNF placement (5) Hypertension: Code(s): I10 - Essential (primary) hypertension Status: Chronic Assessment and Plan: Was recently started on lisinopril and hctz at [place] amlodipine 5 mg at d/c (6) Basal ganglia stroke: Code(s): I63.81 - Other cerebral infarction due to occlusion or stenosis of small artery Status: Acute Assessment and Plan: On statin, ASA 325 mg Left sided weakness and droop with dysphagia started on sertraline and mirtazapine for depression (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 [place] screen completed upon admission here and he was determined to be a low risk. DS: Summary Hospital Course Hospital Course: Patient is a 73 year old male with a PMH of HTN, HLD, and depression who recently suffered a ground level fall on 09/17/23 resulting in left hip fracture and left distal radius fracture. He reports he was walking in a parking lot and started to feel like he was passing out. He underwent left hip shantell arthroplasty on 09/17 at [facility]. His left distal radius fracture was minimally displaced and therefore a volar resting splint was placed. During his hospitalization he developed slurred speech on 09/18 as well as left sided weakness and facial droop with NIH of 10. Neurology was consulted but he was not a candidate for acute interventions. MRI confirmed R basal ganglion acute v subacute infarct. Stroke is suspected to be related to small vessel disease and he was started on aspirin and plavix. He discharged from [facility] to [facility] on 09/22/23 for acute inpatient rehab. On 09/27 at [facility] the patient experienced a low blood pressure with reported systolic in the 80's. Stat labs were drawn and he was found to have hyperkalemia and MAYTE. He was recently started on lisinopril and hydrochlorothiazide during his hospitalization at [facility]. He was sent to [place] ED for further evaluation. In the ED labs were significant for white count of 15.3, hemoglobin 12.1, platelets 524, Na 135, K+ 6.7, BUN 44, and Cr 1.90. Respiratory panel was negative as well as U/A. A head CT was preformed and showed no significant abnormality. Chest XR from 09/27 shows mild left lung base atelectasis. EKG shows NSR. Status at Discharge Functional status at discharge: uses cane/walker Overall status at discharge: patient is not back to baseline Time Spent with Patient Time attestation: Total time spent providing and/or coordinating discharge services: Exam Narrativ
--- NOTE | 2023-10-04 12:13 | PC.NURSE ---
RN called Sorin to give report to nurse. No answer at this time.
--- NOTE | 2023-10-04 13:04 | PC.NURSE ---
RN called again to give report on patient to Sorin. No answer again. EMS transporting patient and aware.
== END 2023-10-04 13:05 | DRG 683 ==
LOC: ANHED 09-29 00:23 → ANH3MED 09-29 00:43
PROVIDERS: Nurse Practitioner Acute Care; Nurse Practitioner Family; Admitting Provider General Practice; Emergency Provider Emergency Medicine; PCP Internal Medicine Geriatric Medicine; Visit Provider General Practice
DX: N17.9 Acute kidney failure, unspecified (principal); I69.354 Hemiplegia and hemiparesis following cerebral infarction affecting left non-dominant side; I69.391 Dysphagia following cerebral infarction; S52.102D Unspecified fracture of upper end of left radius, subsequent encounter for closed fracture with routine healing; E86.0 Dehydration; E87.5 Hyperkalemia; E78.5 Hyperlipidemia, unspecified; I10 Essential (primary) hypertension; W19.XXXD Unspecified fall, subsequent encounter; Z79.01 Long term (current) use of anticoagulants; Z79.82 Long term (current) use of aspirin; Z20.822 Contact with and (suspected) exposure to COVID-19; Z96.642 Presence of left artificial hip joint
CPT/HCPCS: 36415; 70450; 71045; 80048; 80053; 81001; 82140; 83735; 84145; 84484; 85025; 85027; 87637; 92610; 93005; 96360; 96361; 96374; 97110; 97112; 97162; 97165; 97530; 97535; 99285; A9270; G0378; J2270; J7030; J7120

== ENCOUNTER 2023-12-15 13:11 | Emergency (ER) | payer MEDICARE, SELFPAY ==
[2023-12-15 13:23] VITALS: BP 143/85; PULSE 79; RESP 16; TEMP 36.3; O2SAT 100
--- NOTE | 2023-12-15 14:31 | ED.GENADULT ---
HPI - General Adult General Chief complaint: Ear Stated complaint: Ear wax Source: patient Mode of arrival: ambulatory Limitations: no limitations History of Present Illness HPI narrative: Patient presents for evaluation of left sided ear symptoms for about four days. He has a history of cerumen impaction and this feels similar. He feels like his ear is clogged. He has slight decrease in hearing. He feels a bit off-balanced. No fever, chills, cough, sore throat or drainage from the ears. He has attempted to irrigate with hydrogen peroxide but states the type (we) have here is stronger . Related Data Home Medications Medication Instructions Recorded Confirmed acetaminophen 500 mg capsule 975 mg PO TID 09/22/23 09/29/23 apixaban 2.5 mg tablet 2.5 mg PO BID 09/22/23 09/29/23 aspirin 325 mg tablet 325 mg PO DAILY 09/22/23 09/29/23 atorvastatin 80 mg tablet 80 mg PO HS 09/22/23 09/29/23 oxycodone 5 mg tablet 5 mg PO Q4H PRN Pain (Scale Score 09/22/23 09/29/23 7-10) polyethylene glycol 3350 17 17 g PO DAILY 09/22/23 09/29/23 gram/dose oral powder sennosides 8.6 mg tablet (senna) 8.6 mg PO BID 09/22/23 09/29/23 tamsulosin 0.4 mg capsule 0.4 mg PO QHS 09/22/23 09/29/23 mirtazapine 15 mg tablet 30 mg PO HS 09/29/23 09/29/23 ondansetron 4 mg disintegrating 4 mg PO Q8H PRN Nausea And Vomiting 09/29/23 09/29/23 tablet sertraline 50 mg tablet 25 mg PO DAILY 09/29/23 09/29/23 trazodone 50 mg tablet 25 mg PO HS 09/29/23 09/29/23 Allergies Allergy/AdvReac Type Severity Reaction Status Date / Time Iodinated Contrast Media Allergy Rash Verified 09/22/23 22:31 Review of Systems Review of Systems: CONSTITUTIONAL: Denies fever, chills, or sweats. EYES: Denies visual changes, redness, or discharge. ENT: Reports sensation that his left ear is clogged. Reports decreased hearing in the left ear. Denies rhinorrhea, congestion, sore throat CARDIOVASCULAR: Denies chest pain, palpitations, or edema. RESPIRATORY: Denies cough or dyspnea. GASTROINTESTINAL: Denies abdominal pain, nausea, vomiting, or diarrhea. GENITOURINARY: Denies dysuria or hematuria. SKIN: Denies rash or itching. MUSCULOSKELETAL: Denies back pain, joint pain, or myalgia. NEUROLOGIC: Denies headache, numbness, dizziness, or weakness. Reports a sense that he is off balance PSYCHIATRIC: Denies anxiety or depression. 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 Smoking status: Never smoker Alcohol intake: never Drinks per week: 1 Substance use: never Do You Feel Safe in your Home?: Yes Lack of Transportation: No Lack of Food: Never True Current Housing: I Have Housing Concerned About Future Housing: No Difficulty Paying Gas/Electric Bills: No Difficulty Paying for Meds: No Currently Unemployed: No Education: High School Diploma/GED Difficulty w/ Childcare or Family Care: No Living arrangements: alone Occupation/Education: retired Gender identity (if verbalized by the patient): Male Spiritual care concerns: No Exam Narrative: GENERAL: Well-appearing, well-nourished, and in no acute distress. HEAD: Normocephalic, atrau
== END 2023-12-15 14:36 | disposition home or self-care (01) ==
PROVIDERS: Emergency Provider Nurse Practitioner; PCP Internal Medicine Geriatric Medicine
DX: H61.23 Impacted cerumen, bilateral (principal); H66.92 Otitis media, unspecified, left ear; E78.5 Hyperlipidemia, unspecified; I10 Essential (primary) hypertension; I69.391 Dysphagia following cerebral infarction; Z79.82 Long term (current) use of aspirin
CPT/HCPCS: 69210; 99213; G0463

== ENCOUNTER 2023-12-21 08:56 | Emergency (ER) | payer MEDICARE, SELFPAY ==
[2023-12-21 09:03] VITALS: BP 146/87; PULSE 84; RESP 16; TEMP 36.5; O2SAT 100
[2023-12-21 09:11] VITALS: BP 146/87; PULSE 84; RESP 16; TEMP 36.5; O2SAT 100
--- NOTE | 2023-12-21 09:17 | ED.MALEGU ---
HPI - Male Genitourinary General Chief complaint: Urogenital-Male Stated complaint: Trouble Urinating Time Seen by Provider: 12/21/23 09:10 Source: patient and RN notes reviewed Mode of arrival: ambulatory Limitations: no limitations History of Present Illness HPI Narrative: Patient presents today complaining of urinary retention and suprapubic fullness x2 weeks. Reports urgency with voiding small amounts for the last 2 weeks. He is not able to stay with when he last voided well. He does have history of urinary retention. He is currently on Augmentin for otitis media, but is currently not taking any other medications. He is supposed to be taking several medications as he recently had a stroke approximately 3 months ago. Related Data Home Medications Medication Instructions Recorded Confirmed acetaminophen 500 mg capsule 975 mg PO TID 09/22/23 09/29/23 apixaban 2.5 mg tablet 2.5 mg PO BID 09/22/23 09/29/23 aspirin 325 mg tablet 325 mg PO DAILY 09/22/23 09/29/23 atorvastatin 80 mg tablet 80 mg PO HS 09/22/23 09/29/23 oxycodone 5 mg tablet 5 mg PO Q4H PRN Pain (Scale Score 09/22/23 09/29/23 7-10) polyethylene glycol 3350 17 17 g PO DAILY 09/22/23 09/29/23 gram/dose oral powder sennosides 8.6 mg tablet (senna) 8.6 mg PO BID 09/22/23 09/29/23 tamsulosin 0.4 mg capsule 0.4 mg PO QHS 09/22/23 09/29/23 mirtazapine 15 mg tablet 30 mg PO HS 09/29/23 09/29/23 ondansetron 4 mg disintegrating 4 mg PO Q8H PRN Nausea And Vomiting 09/29/23 09/29/23 tablet sertraline 50 mg tablet 25 mg PO DAILY 09/29/23 09/29/23 trazodone 50 mg tablet 25 mg PO HS 09/29/23 09/29/23 Allergies Allergy/AdvReac Type Severity Reaction Status Date / Time Iodinated Contrast Media Allergy Rash Verified 09/22/23 22:31 Review of Systems Review of Systems: CONSTITUTIONAL: Denies body aches, fever, chills, or sweats. EYES: Denies visual changes, redness, or discharge. ENT: Denies rhinorrhea, congestion, sore throat, or otalgia. CARDIOVASCULAR: Denies chest pain, palpitations, or edema. RESPIRATORY: Denies cough or dyspnea. GASTROINTESTINAL: Denies abdominal pain, nausea, vomiting, or diarrhea. GENITOURINARY: Denies dysuria or hematuria.+ urinary retention SKIN: Denies rash, itching, or wounds. MUSCULOSKELETAL: Denies back pain, joint pain, or myalgia. NEUROLOGIC: Denies headache, numbness, tingling, or weakness. PSYCH: Denies depression or anxiety. 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 Smoking status: Never smoker Alcohol intake: never Drinks per week: 1 Substance use: never Do You Feel Safe in your Home?: Yes Lack of Transportation: No Lack of Food: Never True Current Housing: I Have Housing Concerned About Future Housing: No Difficulty Paying Gas/Electric Bills: No Difficulty Paying for Meds: No Currently Unemployed: No Education: High School Diploma/GED Difficulty w/ Childcare or Family Care: No Living arrangements: alone Occupation/Education: retired Gender identity (if verbalized by the patient): Male Spiritual care concerns: No Comments At time of signature, I have reviewed and agree with rodriguez
== END 2023-12-21 09:20 | disposition short-term general hospital (02) ==
PROVIDERS: Emergency Provider Nurse Practitioner; PCP Internal Medicine Geriatric Medicine
DX: R33.9 Retention of urine, unspecified (principal); E78.5 Hyperlipidemia, unspecified; I10 Essential (primary) hypertension; I69.391 Dysphagia following cerebral infarction; Z96.642 Presence of left artificial hip joint
CPT/HCPCS: 99212; G0463